=== PATIENT | male | born 1985 | race Two or more races ===

== ENCOUNTER 2021-11-12 20:47 | Emergency (ER) | payer BC, MEDICAID, OTHER ==
[~2021-11-12] VITALS: Ht 182.9 cm; Wt 79.4 kg
[2021-11-12] MEDS ORDERED: FAMOTIDINE 20 MG TAB PO ONE (21:15)
[2021-11-12] MEDS ORDERED: MORPHINE SULFATE INJ 2 MG/ml SYRG IM ONE (21:15)
[2021-11-12] MEDS ORDERED: ONDANSETRON HCL 4 MG/2 ML VIAL IM ONE (21:15)
[2021-11-12] MEDS ORDERED: HYDR-4902 PO (22:24)
[2021-11-12] MEDS ORDERED: DICY10CA PO (22:24)
== END 2021-11-13 00:20 | disposition home or self-care (01) ==
LOC: ER 20:57
DX: K76.0 Fatty (change of) liver, not elsewhere classified (principal); K80.20 Calculus of gallbladder without cholecystitis without obstruction; K52.9 Noninfective gastroenteritis and colitis, unspecified
CPT/HCPCS: 74176; 96372; 99284; J2270; J2405; 80053; 81001; 83690

== ENCOUNTER 2022-01-08 11:54 | Emergency (ER) | payer MEDICAID ==
[~2022-01-08] VITALS: Ht 182.9 cm; Wt 77.7 kg
[~2022-01-08 11:54] MED LIST: DICY10CA PO; HYDR-4902 PO
[2022-01-08 13:07] LABS: Basophils # (auto) 0 10 ^3/uL (0-0.2); Basophils % (auto) 0.4 % (0.0-2.0); Eosinophils # (auto) 0 10 ^3/uL (0-0.8); Eosinophils % (auto) 0.6 % (0.0-7.0); Hematocrit 48.7 % (41.0-53.0); Hemoglobin 16.1 g/dL (13.5-17.5); Lymphocytes # (auto) 1.4 10 ^3/uL (0.4-5.4); Mean Corpuscular Hemoglobin 30.4 pg (28.0-32.0); Mean Corpuscular Hgb Conc. 33.1 g/dL (32.0-36.0); Mean Corpuscular Volume 91.6 fL (80.0-100.0); Monocytes # (auto) 0.5 10 ^3/uL (0-1.3); Monocytes % (auto) 8.1 % (0.0-12.0); Neutrophils # (auto) 4.5 10 ^3/uL (1.6-8.6); Neutrophils % (auto) 68.9 % (37.0-80.0); Red Blood Cells 5.32 10^6/uL (4.5-5.90); Red Cell Distribution Width 13.1 % (11.8-14.3); White Blood Cell 6.5 10^3/uL (4.4-10.8)
[2022-01-08 13:22] LABS: Albumin 4.2 g/dL (3.4-5.0); Calcium 9.1 mg/dL (8.5-10.1); Potassium 3.5 mmol/L (3.5-5.1)
[2022-01-08 13:37] LABS: BUN/Creatinine Ratio 12.7; Bilirubin, Total 1.2 mg/dL (0.2-1.0); Total Protein 7.9 g/dL (6.4-8.2)
[2022-01-08 15:27] VITALS: BP 120/87
== END 2022-01-08 15:29 | disposition home or self-care (01) ==
LOC: ER 11:54
DX: R10.84 Generalized abdominal pain (principal); F41.9 Anxiety disorder, unspecified; K80.80 Other cholelithiasis without obstruction; K21.9 Gastro-esophageal reflux disease without esophagitis; Z79.2 Long term (current) use of antibiotics; Z79.899 Other long term (current) drug therapy
CPT/HCPCS: 36415; 74176; 80053; 83690; 85025; 93005

== ENCOUNTER 2022-02-22 22:08 | Emergency (ER) | payer MEDICAID ==
[~2022-02-22] VITALS: Ht 190.5 cm; Wt 79.5 kg
[2022-02-22 22:37] VITALS: BP 132/89
== END 2022-02-22 22:46 | disposition left against medical advice (07) ==
LOC: EDBD 22:08 → ER 22:15
DX: M25.562 Pain in left knee (principal); M25.561 Pain in right knee; M79.672 Pain in left foot; M79.671 Pain in right foot; Z53.21 Procedure and treatment not carried out due to patient leaving prior to being seen by health care provider; V47.5XXA Car driver injured in collision with fixed or stationary object in traffic accident, initial encounter; Y93.89 Activity, other specified; Y92.89 Other specified places as the place of occurrence of the external cause; Y99.8 Other external cause status